=== PATIENT | female | born 1985 | race African-American/Black ===

== ENCOUNTER 2020-12-26 16:52 | Emergency (ER) | payer OTHER, SELFPAY ==
--- NOTE | ~2020-12-26 | XR_ITS ---
XR ankle RT min 3V DATE: 12/26/2020 19:08 INDICATION: Rolled ankle. [place] a pop yesterday. Lateral pain. TECHNIQUE: 4 views COMPARISON: None FINDINGS: There is mild lateral soft tissue swelling. No fracture or dislocation of the ankle or disr uption of the ankle mortise. No periosteal reaction or bone destruction. IMPRESSION: Mild lateral soft tissue swelling Reviewed, dictated and finalized at location A.
[2020-12-26 18:44] VITALS: BP 145/84; PULSE 97; RESP 18; TEMP 36.3; O2SAT 100
--- NOTE | 2020-12-26 20:23 | ED.GENADULT ---
HPI - General Adult General Chief complaint: Extremity Injury, Lower <Stacy Burroughs PA-C - Last Filed: 12/26/20 20:37> Stated complaint: right ankle pain <Stacy Burroughs PA-C - Last Filed: 12/26/20 20:37> Time Seen by Provider: 12/26/20 19:42 <Stacy Burroughs PA-C - Last Filed: 12/26/20 20:37> Source: patient <Stacy Burroughs PA-C - Last Filed: 12/26/20 20:37> Mode of arrival: ambulatory <Stacy Burroughs PA-C - Last Filed: 12/26/20 20:37> Limitations: no limitations <Stacy Burroughs PA-C - Last Filed: 12/26/20 20:37> History of Present Illness HPI narrative: Patient presents with chief complaint of right ankle pain and swelling that began last night after rolling her ankle and hearing the popping sensation. Patient states moderate she has been able to bear weight on the ankle however it is painful. Patient reports swelling. Patient denies any other injuries or concerns. <Stacy Burroughs PA-C - Last Filed: 12/26/20 20:37> Related Data Home medications: Home Medications Medication Instructions Recorded Confirmed No Home Medications 12/26/20 12/26/20 <Stacy Burroughs PA-C - Last Filed: 12/26/20 20:37> Allergies/adverse reactions: Allergies Allergy/AdvReac Type Severity Reaction Status Date / Time No Known Allergies Allergy Verified 12/26/20 19:45 <Stacy Burroughs PA-C - Last Filed: 12/26/20 20:37> Review of Systems Review of Systems: CONSTITUTIONAL: Denies fever, chills, or sweats. EYES: Denies visual changes, redness, or discharge. ENT: Denies rhinorrhea, congestion, sore throat, or otalgia. CARDIOVASCULAR: Denies chest pain, palpitations, or edema. RESPIRATORY: Denies cough or dyspnea. GASTROINTESTINAL: Denies abdominal pain, nausea, vomiting, or diarrhea. GENITOURINARY: Denies dysuria or hematuria. SKIN: Denies rash or itching. MUSCULOSKELETAL: Reports right ankle pain denies back pain, joint pain, or myalgia. NEUROLOGIC: Denies headache, numbness, dizziness, or weakness. PSYCHIATRIC: Denies anxiety or depression. <Stacy Burroughs PA-C - Last Filed: 12/26/20 20:37> Exam Narrative: GENERAL: Well-appearing, well-nourished, and in no acute distress. HEAD: Normocephalic, atraumatic. EYES: PERRLA and EOMI. CHEST: Clear to auscultation. No respiratory distress. No wheezes rales or rhonchi HEART: Regular rate and rhythm. No murmur heard. Normal peripheral pulses. EXTREMITIES: Swelling over the lateral malleolus. No erythema noted. Patient able to plantar dorsiflex and invert and invert ankle although there is some discomfort. There is no pain proximally or distally. There are no open wounds. SKIN: Warm, dry, no rash. NEURO: No focal deficits. Alert and oriented x3. PSYCH: Normal mood and affect. <Stacy Burroughs PA-C - Last Filed: 12/26/20 20:37> Course Vital Signs Vital signs: Vital Signs Temperature 97.4 F L 12/26/20 18:44 Pulse Rate 97 12/26/20 18:44 Respiratory Rate 18 12/26/20 18:44 Blood Pressure 145/84 H 12/26/20 18:44 Pulse Oximetry 100 12/26/20 18:44 Temperature 97.4 F L 12/26/20 18:44 Pulse Rate 84 12/26/20 20:56 Respiratory Rate 16 12/26/20 20:56 Blood Pressure 145/100 H 12/26/20 20:56 Pulse Oximetry 100 12/26/20 20:56 <Stacy Burroughs PA-C - Last Filed: 12/26/20 20:37> Medical Decision Making MDM Narrative Medical decision making narrative: Patient sprain/strain of the ankle. Patient given [place]an wrap and crutches to assist with weightbearing status as it is painful. Patient instructed to follow-up with primary care customer management specialist for further evaluation and management of her symptoms. <LEONA Andrade Last Filed: 12/26/20 20:37> Differential Diagnosis Differential Diagnosis: Fracture, sprain, strain <LEONA Andrade Last Filed: 12/26/20 20:37> Vital Signs Vital Signs: Vital Signs Temperature 97.4 F L 12/26/20 18:44 Pulse Rate 97 12/26/20 1
[2020-12-26 20:56] VITALS: BP 145/100; PULSE 84; RESP 16; O2SAT 100
== END 2020-12-26 20:59 | disposition home or self-care (01) ==
PROVIDERS: Emergency Provider General Practice
DX: S93.401A Sprain of unspecified ligament of right ankle, initial encounter (principal); S96.911A Strain of unspecified muscle and tendon at ankle and foot level, right foot, initial encounter; X50.1XXA Overexertion from prolonged static or awkward postures, initial encounter
CPT/HCPCS: 73610; 99283